=== PATIENT | male | born 1960 | race Caucasian/White ===

== ENCOUNTER → 2018-05-08 11:04 | Outpatient (REF) | payer OTHER, SELFPAY ==
[2018-05-08 11:10] LABS: Add Manual Diff / Slide Review NO; Basophils Percent Auto 0.5 % (0-2); Eosinophils Percent Auto 3.6 % (2-4); Hemoglobin 15.4 g/dL (13.5-17.5); Lymphocytes Percent Auto 31.9 % (25-40); Mean Corpuscular HGB Conc 33.6 % (30-36); Mean Corpuscular Hemoglobin 28.9 PG (26-34); Mean Corpuscular Volume 85.9 fL (80-100); Monocytes Percent Auto 6.3 % (3-14); Neutrophils Absolute Auto 5400 /uL (3000-5900); Neutrophils Percent Auto 57.7 % (50-75); Platelet Count 195 X10^3/uL (150-400); Red Blood Cell Count 5.35 X10^6/uL (4.5-5.9); Red Cell Distribution Width 14.6 % (11.6-14.8); White Blood Cell Count 9.4 X10^3/uL (4.5-11.0)
[2018-05-08 11:24] LABS: Alanine Aminotransferase 31 IU/L (21-72); Albumin 4.6 g/dL (3.5-5.0); Albumin Globulin Ratio 1.5 (1.0-2.8); Alkaline Phosphatase 58 U/L (38-126); Aspartate Aminotransferase 24 IU/L (17-59); BUN Creatinine Ratio 32.5 (6-22); Bilirubin Total 0.7 mg/dL (0.2-1.3); Blood Urea Nitrogen 26 mg/dL (9-20); Carbon Dioxide 30 mmol/L (22-32); Chloride 100 mmol/L (98-107); Cholesterol 249 mg/dL (140-199); Estimated Glomerular Filt Rate > 60.0 mL/min (>60); Glucose 102 mg/dL (70-100); HDL Cholesterol 43 mg/dL (40-60); HEMOLYSIS < 15 (0-50); LDL Cholesterol Calculated 130 mg/dL (<100); Potassium 3.8 mmol/L (3.4-5.1); Sodium 141 mmol/L (137-145); Total Protein 7.6 g/dL (6.3-8.2); Triglycerides 380 mg/dL (35-150)
[2018-05-08 11:54] LABS: Prostate Specific Antigen Scrn 1.13 ng/mL (0.1-4.0)
== END ==
LOC: LAB 11:04
PROVIDERS: Visit Provider Internal Medicine
DX: I10 Essential (primary) hypertension (principal); E78.5 Hyperlipidemia, unspecified; Z12.5 Encounter for screening for malignant neoplasm of prostate
CPT/HCPCS: 80053; 80061; 85025; G0103

== ENCOUNTER → 2018-05-14 12:37 | Outpatient (CLI) | payer OTHER, SELFPAY ==
[2018-05-14 14:02] LABS: Appearance Urine UA CLEAR; Bilirubin Urine UA NEGATIVE (NEGATIVE); Color Urine UA YELLOW; Glucose Urine UA NEGATIVE (Normal); Ketones Urine UA NEGATIVE (NEGATIVE); Leukocyte Esterase Urine UA NEGATIVE (NEGATIVE); Nitrite Urine UA Negative (Negative); Occult Blood Urine UA NEGATIVE (Negative); Protein Urine UA NEGATIVE (Negative); Urobilinogen Urine UA 0.2 E.U./dL (0.2); pH Urine UA 5.5 (4.5-8.0)
== END ==
PROVIDERS: PCP Internal Medicine; Visit Provider Surgery
DX: R39.15 Urgency of urination (principal)
CPT/HCPCS: 81003

== ENCOUNTER → 2018-05-18 12:04 | Outpatient (CLI) | payer OTHER, SELFPAY ==
--- NOTE | 2018-05-18 13:25 | P.PCN_ITS ---
Cardiac Stress Test Report Referral & Results Date Patient Seen: 05/18/18 Time Patient Seen: 13:23 Requesting provider: Chris Burger Indication: Chest pain Rest ECG: Unremarkable Procedure Note: Today following both written and verbal informed consent the patient was exercised according to a standard Mike protocol patient went for a total of 6 min 7 sec achieving a maximum heart rate of 153 maximum systolic blood pressure of 210. This is approximately 7.0 METS. Exercise was terminated at this point because of targets having been med. Patient was also given Cardiolite through a previously started Hep-Lock IV by the nuclear medicine specialist approximately 1 minute prior to the cessation of exercise. With exercise, patient had no clear ST-T segment changes Occasional PACs were identified and near the end of exercise patient went into an accelerated supraventricular rhythm with a heart rate in the 150s, probably an SVT although somewhat slow for that, this was asymptomatic. This resolved early in recovery, and heart rate dropped back to 120 or so. Functional aerobic impairment rated 25% on the sedentary scale Impression: No evidence of ischemia Dysrhythmia as above Perfusion imaging will be reported separately Please note: Actual ECG tracings can be found in the PACS system.
--- NOTE | 2018-05-19 18:32 | DI.NM.S_ITS ---
DATE OF SERVICE: 05/18/2018 PROCEDURE: Exercise perfusion study. INDICATIONS: History of chest pain with underlying hypertension, hyperlipidemia, and strong family history of coronary artery disease. RADIOPHARMACEUTICAL: 25.8 mCi technetium-99m Myoview IV was injected at stress and 24.9 mCi technetium-99m Myoview IV was injected at rest. CARDIAC STRESS: Patient underwent exercise perfusion study under the supervision of an attending staff. He walked on Mike protocol for 6 minutes and 07 seconds and achieved 95% of target heart rate. There was hypertensive blood pressure response. Baseline blood pressure 138/90. Peak blood pressure 210/100. Baseline rhythm was sinus. During stress, there was some nonspecific ST depression in inferolateral leads. At the peak heart rate of 153, patient had narrow QRS tachycardia with likely SVT. No significant ventricular arrhythmias seen. No significant chest pain reported. RAW DATA: There is increased subdiaphragmatic activity. Soft tissue shadow seen around the heart as well. Patient's weight is about 310 pounds. GATED STUDY: Resting stress LV ejection fraction 62%. Stress LV ejection fraction 73%. I don't see any significant wall motion abnormalities. No transient ischemic dilatation. TID ratio is 1.00, which is within normal limits. Resting LV end-diastolic volume is 162 mL. Lung/heart ratio is 0.37, which is within normal limits. MYOCARDIAL PERFUSION SCAN: Stress supine, resting supine, and stress prone images were compared to each other. Resting supine images revealed moderate- sized puqm-nc-mxvntpavip decreased perfusion of inferior wall and inferior apex. Stress supine images revealed moderate size, ihwo-zz-yvtfbvzhgy decreased perfusion of inferior wall, inferior apex, as well as wwla-lk-okgnxahbwx decreased perfusion of mid-anterior wall extending into the distal anterior septum. During prone images, most of the inferior wall defect got improved; however, patient remained to have mildly decreased perfusion of inferior apex; and moderately decreased perfusion of mid anterior wall extending into the distal anterior septum which appears to be reversible. CONCLUSION: I will call this study an abnormal myocardial perfusion study with icbb-bq-bhrjgyuc reversible ischemia of mid anterior wall extending into the distal anterior septum. Inferior wall defect likely due to diaphragmatic tissue attenuation artifact. There is a hypertensive blood pressure response. Patient also had narrow QRS tachycardia at peak exercise, likely SVT. findings were discussed with Dr. Burger. Michael Correa - INHALATION THERAPIST/fn/ab doc#: [id number]/job#: [id number] dd: 05/19/2018 12:52:00 dt: 05/19/2018 18:20:00 DICTATING MD/COPIES TO: Riana Waters MD; Chris Burger MD COPIES MNE: JW; JUDIT
== END ==
PROVIDERS: PCP Internal Medicine; Visit Provider Internal Medicine
DX: R07.9 Chest pain, unspecified (principal); I49.9 Cardiac arrhythmia, unspecified
CPT/HCPCS: 78452; 93016; 93017; 93018; A9502

== ENCOUNTER → 2018-07-07 15:00 | Outpatient (CLI) | payer OTHER, SELFPAY | PROVIDERS: PCP Internal Medicine | DX: Z23 Encounter for immunization (principal) | CPT/HCPCS: 90471; 90686 ==

== ENCOUNTER → 2018-09-14 16:37 | Outpatient (CLI) | payer OTHER, SELFPAY ==
--- NOTE | 2018-09-14 16:40 | DI.RAD.S_ITS ---
PROCEDURE: XR CHEST 2V INDICATIONS: fever, cough, dyspnea TECHNIQUE: 2 views of the chest were acquired. COMPARISON: [facility], , CHEST 2 VIEW, 01/14/2017, 3:13. FINDINGS: Surgical changes and devices: None. Lungs and pleura: No pleural effusions or pneumothorax. Patchy consolidation involving the right upper lobe Mediastinum: Mediastinal contours are normal. Heart size is normal. Bones and chest wall: No suspicious bony abnormalities. Soft tissues appear unremarkable. IMPRESSION: Right upper lobe pneumonia Dictated by: Mc Land M.D. on 09/15/2018 at 9:01 Approved by: Mc Land M.D. on 09/15/2018 at 9:33
== END ==
PROVIDERS: PCP Internal Medicine; Visit Provider Surgery
DX: J18.9 Pneumonia, unspecified organism (principal)
CPT/HCPCS: 71046

== ENCOUNTER → 2018-09-15 12:01 | Outpatient (CLI) | payer OTHER, SELFPAY | PROVIDERS: PCP Internal Medicine; Visit Provider Surgery | DX: Z13.9 Encounter for screening, unspecified (principal) ==

== ENCOUNTER → 2018-10-12 11:47 | Outpatient (CLI) | payer OTHER, SELFPAY ==
--- NOTE | 2018-10-12 | DI.RAD.S_ITS ---
PROCEDURE: XR CHEST 2V INDICATIONS: Pneumonia TECHNIQUE: 2 views of the chest were acquired. COMPARISON: [facility], , CHEST 2 VIEW, 01/14/2017, 3:13. [facility], , XR CHEST 2V, 09/14/2018, 16:44. FINDINGS: Surgical changes and devices: None. Lungs and pleura: The previously seen right upper lobe infiltrate has resolved. The lungs now appear clear. No pneumothorax or pleural effusions are seen. Mediastinum: Mediastinal contours are normal. Heart size is normal. Bones and chest wall: No suspicious bony abnormalities. Age-appropriate bony degenerative changes are seen. Soft tissues appear unremarkable. IMPRESSION: Resolution of the previously seen right upper lobe infiltrate. Dictated by: Timur Valverde M.D. on 10/12/2018 at 11:14 Approved by: Timur Valverde M.D. on 10/12/2018 at 11:15
== END ==
PROVIDERS: PCP Internal Medicine; Visit Provider Internal Medicine
DX: J18.9 Pneumonia, unspecified organism (principal)
CPT/HCPCS: 71046

== ENCOUNTER → 2019-04-11 12:50 | Outpatient (CLI) | payer OTHER, SELFPAY ==
--- NOTE | 2019-04-11 12:53 | DI.RAD.S_ITS ---
PROCEDURE: XR CHEST 2V INDICATIONS: Fever, chills, productive cough. eval for pna TECHNIQUE: 2 views of the chest were acquired. COMPARISON: [facility], CR, XR CHEST 2V, 10/12/2018, 11:48. FINDINGS: Surgical changes and devices: None. Lungs and pleura: Mild patchy bilateral perihilar opacity and peribronchial cuffing. No pleural effusions or pneumothorax. Mediastinum: Mediastinal contours are normal. Heart size is normal. Bones and chest wall: No suspicious bony abnormalities. Soft tissues appear unremarkable. IMPRESSION: Mild atypical pneumonia. Dictated by: Gela Carrasquillo M.D. on 04/11/2019 at 12:03 Approved by: Gela Carrasquillo M.D. on 04/11/2019 at 12:04
== END ==
PROVIDERS: PCP Internal Medicine; Visit Provider Surgery
DX: J18.9 Pneumonia, unspecified organism (principal); R05 Cough; R50.9 Fever, unspecified
CPT/HCPCS: 71046

== ENCOUNTER → 2019-07-22 12:48 | Outpatient (CLI) | payer OTHER, SELFPAY | PROVIDERS: PCP Internal Medicine | DX: Z23 Encounter for immunization (principal) | CPT/HCPCS: 90471; 90686 ==

== ENCOUNTER → 2020-02-29 15:49 | Outpatient (CLI) | payer OTHER, SELFPAY ==
[2020-02-29 16:22] LABS: Add Manual Diff / Slide Review NO; Basophils Absolute Auto 100 /uL (0-100); Basophils Percent Auto 0.7 % (0-2); Eosinophils Absolute Auto 300 /uL (0-450); Eosinophils Percent Auto 2.9 % (2-4); Hematocrit 40.7 % (41-53); Hemoglobin 13.5 g/dL (13.5-17.5); Lymphocytes Absolute Auto 3200 /uL (1100-4500); Lymphocytes Percent Auto 35.4 % (25-40); Mean Corpuscular HGB Conc 33.1 % (30-36); Mean Corpuscular Hemoglobin 28.8 PG (26-34); Monocytes Absolute Auto 600 /uL (0-900); Monocytes Percent Auto 6.1 % (3-14); Neutrophils Absolute Auto 5000 /uL (1500-7000); Neutrophils Percent Auto 54.9 % (50-75); Platelet Count 174 X10^3/uL (150-400); Red Blood Cell Count 4.67 X10^6/uL (4.5-5.9); Red Cell Distribution Width 14.7 % (11.6-14.8)
[2020-02-29 16:29] LABS: INR 1.3 (0.9-1.3); Prothrombin Time 14.4 SECONDS (10.1-12.7)
[2020-02-29 17:18] LABS: BUN Creatinine Ratio 25.2 (6-22); Blood Urea Nitrogen 27 mg/dL (9-20); Calcium 9.6 mg/dL (8.4-10.2); Carbon Dioxide 29 mmol/L (22-32); Chloride 105 mmol/L (98-107); Estimated Glomerular Filt Rate > 60.0 mL/min (>60); Glucose 109 mg/dL (80-110); HEMOLYSIS < 15 (0-50); Potassium 3.8 mmol/L (3.4-5.1); Sodium 140 mmol/L (137-145)
== END ==
PROVIDERS: PCP Internal Medicine; Referring Provider Surgery; Visit Provider Surgery
DX: I48.92 Unspecified atrial flutter (principal)
CPT/HCPCS: 36415; 80048; 85025; 85610

== ENCOUNTER → 2020-03-03 14:50 | Outpatient (CLI) | payer OTHER, SELFPAY ==
[2020-03-04 04:18] LABS: COVID19 Sendout Not Detected (Not Detect)
== END ==
PROVIDERS: PCP Internal Medicine; Visit Provider Family Medicine
DX: Z01.812 Encounter for preprocedural laboratory examination (principal)
CPT/HCPCS: 87635

== ENCOUNTER → 2020-03-08 11:03 | Outpatient (CLI) | payer OTHER, SELFPAY ==
[2020-03-08 12:06] LABS: COVID19 -Nasal RAPID Negative (Negative)
== END ==
PROVIDERS: PCP Internal Medicine; Visit Provider Physician Assistant
DX: J02.9 Acute pharyngitis, unspecified (principal)
CPT/HCPCS: 87635

== ENCOUNTER → 2020-06-14 08:24 | Outpatient (CLI) | payer OTHER, SELFPAY ==
[2020-06-14 09:52] LABS: Add Manual Diff / Slide Review NO; Basophils Absolute Auto 100 /uL (0-100); Eosinophils Absolute Auto 200 /uL (0-450); Eosinophils Percent Auto 3.5 % (2-4); Hemoglobin 14.1 g/dL (13.5-17.5); Lymphocytes Absolute Auto 2400 /uL (1100-4500); Lymphocytes Percent Auto 36.4 % (25-40); Mean Corpuscular HGB Conc 34.4 % (30-36); Mean Corpuscular Hemoglobin 29.3 PG (26-34); Mean Corpuscular Volume 85.3 fL (80-100); Monocytes Absolute Auto 400 /uL (0-900); Monocytes Percent Auto 6.2 % (3-14); Neutrophils Absolute Auto 3500 /uL (1500-7000); Neutrophils Percent Auto 52.9 % (50-75); Platelet Count 174 X10^3/uL (150-400); Red Cell Distribution Width 14.3 % (11.6-14.8); White Blood Cell Count 6.7 X10^3/uL (4.5-11.0)
[2020-06-14 10:20] LABS: Alanine Aminotransferase 22 IU/L (<50); Albumin 4.3 g/dL (3.5-5.0); Albumin Globulin Ratio 1.6 (1.0-2.8); Alkaline Phosphatase 51 U/L (38-126); Aspartate Aminotransferase 24 IU/L (17-59); BUN Creatinine Ratio 32.6 (6-22); Bilirubin Total 0.6 mg/dL (0.2-1.3); Blood Urea Nitrogen 28 mg/dL (9-20); Calcium 9.3 mg/dL (8.4-10.2); Carbon Dioxide 31 mmol/L (22-32); Chloride 101 mmol/L (98-107); Cholesterol 202 mg/dL (140-199); Estimated Glomerular Filt Rate > 60.0 mL/min (>60); Globulin 2.7 g/dL (1.7-4.1); Glucose 106 mg/dL (80-110); HDL Cholesterol 37 mg/dL (40-60); HEMOLYSIS < 15 (0-50); LDL Cholesterol Calculated 113 mg/dL (<100); Potassium 4.2 mmol/L (3.4-5.1); Sodium 139 mmol/L (137-145); Triglycerides 262 mg/dL (35-150)
[2020-06-14 10:40] LABS: TSH w/ Reflex to FT4 2.43 uIU/mL (0.47-4.68)
[2020-06-14 10:42] LABS: Prostate Specific Antigen Scrn 1.17 ng/mL (0.1-4.0)
[2020-06-14 11:01] LABS: Vitamin B12 362 pg/mL (239-931)
== END ==
PROVIDERS: PCP Internal Medicine; Referring Provider Internal Medicine; Visit Provider Internal Medicine
DX: I10 Essential (primary) hypertension (principal); E78.5 Hyperlipidemia, unspecified; I48.92 Unspecified atrial flutter
CPT/HCPCS: 36415; 80053; 80061; 82607; 84443; 85025; G0103

== ENCOUNTER → 2020-08-01 07:30 | Outpatient (CLI) | payer OTHER, SELFPAY | PROVIDERS: PCP Internal Medicine; Referring Provider Internal Medicine; Visit Provider Internal Medicine | DX: Z23 Encounter for immunization (principal) | CPT/HCPCS: 90471; 90686 ==

== ENCOUNTER → 2020-10-25 15:50 | Outpatient (CLI) | payer OTHER, SELFPAY ==
[2020-10-25] MEDS: COVID-19 VACC(MODERNA-1)/PF 100 MCG/0.5 ML VIAL IM (15:57)
== END ==
PROVIDERS: PCP Internal Medicine; Visit Provider Specialist
DX: Z23 Encounter for immunization (principal)
CPT/HCPCS: 0011A; 91301

== ENCOUNTER → 2020-11-21 16:00 | Outpatient (CLI) | payer OTHER, SELFPAY ==
[2020-11-21] MEDS: COVID-19 VACC #2, MRNA(MOD) 100 MCG/0.5 ML VIAL IM (16:06)
== END ==
PROVIDERS: PCP Internal Medicine; Visit Provider Internal Medicine
DX: Z23 Encounter for immunization (principal)
CPT/HCPCS: 0012A; 91301

== ENCOUNTER → 2021-06-13 09:40 | Outpatient (CLI) | payer OTHER, SELFPAY ==
[2021-06-13 10:24] LABS: COVID19 -Nasal RAPID Negative (Negative)
== END ==
PROVIDERS: PCP Internal Medicine; Visit Provider Surgery
DX: Z20.822 Contact with and (suspected) exposure to COVID-19 (principal)
CPT/HCPCS: 87635; C9803

== ENCOUNTER → 2021-07-20 15:45 | Outpatient (CLI) | payer OTHER, SELFPAY ==
[2021-07-20 17:13] LABS: COVID19 -Nasal RAPID Negative (Negative)
== END ==
PROVIDERS: PCP Internal Medicine; Visit Provider Surgery
DX: Z01.812 Encounter for preprocedural laboratory examination (principal); Z20.822 Contact with and (suspected) exposure to COVID-19
CPT/HCPCS: 87635; C9803

== ENCOUNTER 2021-07-23 06:45 | Day surgery (SDC) | payer OTHER, SELFPAY ==
--- NOTE | 2021-07-23 | PATH_ITS ---
[facility] Accession Number: [id number] . 01 Material submitted: . PART A: colon - SIGMOID COLON POLYP PART B: colon - CECUM POLYP . 02 Diagnosis: A. Sigmoid Colon, Polyp, Biopsy: Tubular adenoma. . B. Cecum, Polyp, Biopsy: Tubular adenoma. MRV 07/25/2021 1226 Local . 02 Electronically signed: . Abeba Mc MD, Pathologist NPI- [id number] . 01 Gross description: . Part A: SIGMOID COLON POLYP: Received in formalin are 2 fragment(s) of agrawal, soft tissue measuring 0.5 x 0.3 x 0.2 cm to 0.3 x 0.2 x 0.2 cm submitted entirely in 1 cassette(s) Part B: CECUM POLYP: Received in formalin are 3 fragment(s) of agrawal, soft tissue measuring 0.3 x 0.3 x 0.2 cm to 0.2 x 0.1 x 0.1 cm submitted entirely in 1 cassette(s) /TATY 07/24/2021 0418 Local . 02 Pathologist provided ICD-10: D12.0, D12.5 . 02 CPT . 659609, 093007 Performed at: 01 [facility] [address], [place], [place] [id number] MD Royce Lazaro MD Phone: [phone] Performed at: 02 [facility] [address] [place], [place] [id number] MD Abeba Mc MD Phone: [phone]
[2021-07-23 06:59] VITALS: BP 149/74; PULSE 66; RESP 14; TEMP 36.9; O2SAT 95
[2021-07-23] MEDS: LACTATED RINGERS 1,000 ML 200 ML IV (07:16)
--- NOTE | 2021-07-23 07:37 | PM.HP.1 ---
History of Present Illness History of Present Illness Date Patient Seen: 07/23/21 Time Patient Seen: 07:37 Chief complaint: SDC Narrative: The patient presents for colorectal sreening. Previous colonoscopy 11 years ago and normal. No personal or family history of colon cancer. On further history denies any recent gastrointestinal symptoms. No nausea, vomiting, abdominal pain, loss of appetite, unexplained weight loss, change in bowel habits, diarrhea, constipation, melena, hematochezia, or bright red blood per rectum. Patient History Medical History Accidental needlestick injury with exposure to body fluid Atrial flutter Atypical chest pain Essential hypertension History of torn meniscus of left knee History of torn meniscus of right knee Hyperlipidemia Morbid obesity with body mass index (BMI) of 40.0 to 49.9 Obstructive sleep apnea Pneumonia Sick sinus syndrome due to SA node dysfunction Torn ACL (anterior cruciate ligament) Surgical History History of cardiac radiofrequency ablation History of right inguinal hernia repair S/P left knee arthroscopy Family & Social History Family History Sister Dementia Mother Hypertension Hyperlipidemia Brother Cancer Father No problems noted. Social History: household members spouse Tobacco & Substance use: Smoking Status Never smoker alcohol intake current alcohol intake frequency holiday/special occasion Substance Use Type does not use Meds Home Medications and Allergies Home Medications Medication Instructions Recorded Confirmed Type chlorthalidone 25 mg tablet 25 mg PO DAILY #0 01/14/17 07/23/21 History losartan 100 mg tablet 100 mg PO QDAY #0 01/14/17 07/23/21 History [TYLENOL ] 1,000 mg PO Q6-8H PRN #0 07/07/18 02/08/19 History fenofibrate nanocrystallized 145 145 mg PO DAILY 07/07/18 07/23/21 History mg tablet Respironics Dreamstation CPAP #1 ea 02/17/20 History doxazosin 8 mg tablet 8 mg PO DAILY 07/21/21 07/23/21 History Asp 325 mg PO DAILY 07/23/21 07/23/21 History Allergies Allergy/AdvReac Type Severity Reaction Status Date / Time chlorhexidine [CHLORHEXIDINE] Allergy Unknown Verified 07/23/21 06:51 lisinopril [LISINOPRIL] Allergy Unknown Cough Verified 07/23/21 07:19 amoxicillin [From AUGMENTIN] AdvReac Severe diarrhea Verified 07/23/21 07:19 Ufguhkr-Dcq-Zga Reductase AdvReac Severe Severe Verified 07/23/21 07:19 Inhibitor muscle pain [[id number]-[id number]-EBR REDUCTASE INHIBITOR] ezetimibe [From Zetia] AdvReac Intermediate severe Verified 07/23/21 07:19 muscle pain adhesive tape AdvReac Unknown Verified 07/23/21 07:19 azithromycin [AZITHROMYCIN] AdvReac Unknown vomiting Verified 07/23/21 07:19 clavulanic acid AdvReac Unknown diarrhea Verified 07/23/21 07:19 [From AUGMENTIN] Exam Vital Signs (past 8 hours): - 07/23/21 06:59 Temperature 98.4 F Pulse Rate 66 Respiratory Rate 14 Blood Pressure 149/74 H Pulse Oximetry 95 Oxygen Delivery Method Room Air Narrative Exam Narrative: Constitutional-he is oriented to person, place and time. No apparent distress Chest-non labored respirations Abdominal-soft, non-tender, non-distended Neurological-nonfocal, normal strength throughout, normal gait. Skin-warm and dry Assessment & Plan Assessment and plan (1) Screening for colon cancer: Status: Acute Assessment & Plan narrative: The patient requires colorectal screening and colonoscopy is recommended. Technical details were discussed. Risks, benefits, alternatives explained. Risks including but not limited to myocardial infarction, aspiration, bleeding, pain, missed lesion, incomplete examination, need for further radiographic studies, colonic perforation, and need for major abdominal surgery were discussed. All questions were answered to their satisfaction, and they are in agreement with this plan. Time Spent With Patient Critical Care time: I spent a total of [] minutes of critical care time on this patient's care today; this time is exclusive of procedural time.
[2021-07-23] MEDS: fentaNYL 250 MCG/5 ML INJ IV (08:01)
[2021-07-23 08:24] VITALS: BP 155/69; PULSE 65; RESP 16; TEMP 36.8; O2SAT 96
--- NOTE | 2021-07-23 08:26 | PM.OP.COLON ---
Operative Date/Time/Diagnoses Date of procedure: 07/23/21 Time of procedure: 08:26 Pre-op diagnosis: Screening colonoscopy Post-op diagnosis: same Procedure & Clinicians Study performed: Colonoscopy and polypectomy Same procedure as scheduled: Yes Indications: Screening colonoscopy Surgeon: Bello Avitia Procedure Notes Procedure in detail: Medications: Conscious sedation using 50mcg IV of fentanyl The history and physical was performed/updated and the patient is ASA class is 2. The procedure was discussed in detail with the patient. Potential risks complications including infection, bleeding, missed diagnosis, perforation, need for surgery, and were explained. Their questions were answered and informed consent was obtained. Patient was brought to the procedure room and placed standard monitoring equipment. The patient's vital signs were monitored continuously throughout the entire procedure. Prior to starting time-out was performed. The patient was placed in the left lateral recumbent position. Examination began with a thorough inspection of the perianal area there was no evidence of fissures, fistulae, or cutaneous malignancy. Digital rectal exam demonstrated a moderate size prostate without masses. The colonoscopy scope was then placed into the anal canal and was advanced to the cecum, which was identified by the ileocecal valve, the appendiceal orifice and the confluence of the taenia. The scope was then slowly withdrawn examining colon thoroughly in all directions, irrigating it of any residual stool. FINDINGS 1. 5 mm polyp in the sigmoid colon removed with biopsy forceps 2. 5 mm polyp in the cecum removed with biopsy forceps The patient tolerated the procedure well. They will be discharged once criteria are met. The prep was of good/excellent quality. The withdrawl time was 8 minutes. The sedation time was 30 minutes. Specimen(s): other (cecum and sigmoid colonic polyps) Complications: none Impression: colonic polyps Post-procedure Recommendations: Colonoscopy in 5 years Disposition: same day surgery
[2021-07-23 08:29] VITALS: BP 163/91; PULSE 66; RESP 16; O2SAT 96
[2021-07-23 08:32] VITALS: BP 155/86; PULSE 63; RESP 16; O2SAT 96
--- NOTE | 2021-07-23 08:41 | SUR.PHASEII ---
dc instructions given. patient wide awake. states ready for dc. vss.
== END 2021-07-23 08:45 | disposition home or self-care (01) ==
PROVIDERS: PCP Internal Medicine; Referring Provider Surgery; Visit Provider Surgery
PROC: 0DJD8ZZ Inspection of Lower Intestinal Tract, Via Natural or Artificial Opening Endoscopic (ICD-10-PCS; CPT 45378; principal; 2021-07-23 07:45)
DX: Z12.11 Encounter for screening for malignant neoplasm of colon (principal); I10 Essential (primary) hypertension; E78.5 Hyperlipidemia, unspecified; E66.01 Morbid (severe) obesity due to excess calories; G47.33 Obstructive sleep apnea (adult) (pediatric); D12.0 Benign neoplasm of cecum; D12.5 Benign neoplasm of sigmoid colon
CPT/HCPCS: 45380; 99152; 99153; J3010

== ENCOUNTER → 2021-08-24 10:35 | Outpatient (CLI) | payer OTHER, SELFPAY ==
[2021-08-24] MEDS: COVID-19 VACC #3, MRNA(MOD) 50 MCG/0.25 ML VIAL IM (10:38)
== END ==
PROVIDERS: PCP Internal Medicine; Visit Provider Internal Medicine
DX: Z23 Encounter for immunization (principal)
CPT/HCPCS: 0013A; 91301

== ENCOUNTER → 2021-08-24 11:02 | Outpatient (CLI) | payer OTHER, SELFPAY ==
[2021-08-24 12:19] LABS: Add Manual Diff / Slide Review NO; Basophils Absolute Auto 100 /uL (0-100); Basophils Percent Auto 0.9 % (0-2); Eosinophils Absolute Auto 300 /uL (0-450); Eosinophils Percent Auto 4.1 % (2-4); Hematocrit 39.9 % (41-53); Hemoglobin 13.5 g/dL (13.5-17.5); Lymphocytes Absolute Auto 2400 /uL (1100-4500); Lymphocytes Percent Auto 36.5 % (25-40); Mean Corpuscular HGB Conc 33.9 % (30-36); Mean Corpuscular Hemoglobin 28.7 PG (26-34); Mean Corpuscular Volume 84.7 fL (80-100); Monocytes Absolute Auto 400 /uL (0-900); Monocytes Percent Auto 5.6 % (3-14); Neutrophils Absolute Auto 3500 /uL (1500-7000); Neutrophils Percent Auto 52.9 % (50-75); Platelet Count 185 X10^3/uL (150-400); Red Blood Cell Count 4.71 X10^6/uL (4.5-5.9); Red Cell Distribution Width 13.9 % (11.6-14.8); White Blood Cell Count 6.6 X10^3/uL (4.5-11.0)
[2021-08-24 12:48] LABS: Alanine Aminotransferase 24 IU/L (<50); Albumin Globulin Ratio 1.4 (1.0-2.8); Alkaline Phosphatase 50 U/L (38-126); Aspartate Aminotransferase 24 IU/L (17-59); Bilirubin Total 0.5 mg/dL (0.2-1.3); Blood Urea Nitrogen 24 mg/dL (9-20); Calcium 9.5 mg/dL (8.4-10.2); Carbon Dioxide 29 mmol/L (22-32); Chloride 103 mmol/L (98-107); Cholesterol 192 mg/dL (140-199); Estimated Glomerular Filt Rate > 60.0 mL/min (>60); Globulin 2.9 g/dL (1.7-4.1); Glucose 102 mg/dL (80-110); HDL Cholesterol 37 mg/dL (40-60); HEMOLYSIS < 15 (0-50); LDL Cholesterol Calculated 101 mg/dL (<100); Potassium 3.9 mmol/L (3.4-5.1); Sodium 141 mmol/L (137-145); Total Protein 6.9 g/dL (6.3-8.2); Triglycerides 270 mg/dL (35-150)
[2021-08-24 13:15] LABS: TSH w/ Reflex to FT4 1.82 uIU/mL (0.47-4.68)
== END ==
PROVIDERS: PCP Internal Medicine; Referring Provider Internal Medicine; Visit Provider Internal Medicine
DX: G25.0 Essential tremor (principal); G47.33 Obstructive sleep apnea (adult) (pediatric); I10 Essential (primary) hypertension; Z12.5 Encounter for screening for malignant neoplasm of prostate; E78.2 Mixed hyperlipidemia
CPT/HCPCS: 36415; 80053; 80061; 84153; 84443; 85025

== ENCOUNTER → 2021-08-30 09:28 | Outpatient (CLI) | payer OTHER, SELFPAY ==
[2021-08-30 11:10] LABS: COVID19 -Nasal RAPID Negative (Negative)
== END ==
PROVIDERS: PCP Internal Medicine; Visit Provider Surgery
DX: Z01.812 Encounter for preprocedural laboratory examination (principal); Z20.822 Contact with and (suspected) exposure to COVID-19
CPT/HCPCS: 87635; C9803

== ENCOUNTER → 2021-11-20 13:17 | Outpatient (CLI) | payer OTHER, SELFPAY ==
[2021-11-20 15:54] LABS: BUN Creatinine Ratio 27.4 (6-22); Blood Urea Nitrogen 29 mg/dL (9-20); Carbon Dioxide 32 mmol/L (22-32); Chloride 100 mmol/L (98-107); Estimated Glomerular Filt Rate > 60.0 mL/min (>60); Glucose 105 mg/dL (80-110); HEMOLYSIS < 15 (0-50); Potassium 3.3 mmol/L (3.4-5.1); Sodium 140 mmol/L (137-145)
== END ==
PROVIDERS: PCP Internal Medicine; Referring Provider Internal Medicine Cardiovascular Disease; Visit Provider Internal Medicine Cardiovascular Disease
DX: I48.3 Typical atrial flutter (principal); E78.5 Hyperlipidemia, unspecified
CPT/HCPCS: 36415; 80048

== ENCOUNTER → 2022-05-10 15:57 | Outpatient (CLI) | payer OTHER, SELFPAY ==
--- NOTE | 2022-05-10 15:59 | DI.RAD.S_ITS ---
PROCEDURE: XR LUMBAR SPINE MIN 4V INDICATIONS: bilateral sciatic pain TECHNIQUE: 5 views of the lumbar spine were acquired, including bilateral oblique views. COMPARISON: None. FINDINGS: Bones: 5 nonrib-bearing vertebrae are present. There is normal bony alignment. No acute vertebral body compression fractures. No suspicious bony lesions. Moderate multilevel lumbar spondylosis with degenerative endplate changes, endplate osteophyte formation, and moderate mid and lower lumbar facet arthropathy. Findings appear most pronounced at the thoracolumbar junction. Soft tissues: Overlying bowel gas pattern is normal. No suspicious soft tissue calcifications. Atherosclerotic calcifications noted. Oblique images: No pars defects. IMPRESSION: Lumbar spine without acute osseous abnormalities. Moderate multilevel lumbar spondylosis most pronounced at the thoracolumbar junction. Moderate mid and lower lumbar facet arthropathy. Dictated by: Sidney Escobedo M.D. on 05/10/2022 at 16:53 Approved by: Sidney Escobedo M.D. on 05/10/2022 at 16:55
== END ==
PROVIDERS: PCP Internal Medicine; Referring Provider Surgery; Visit Provider Surgery
DX: M47.815 Spondylosis without myelopathy or radiculopathy, thoracolumbar region (principal); M47.816 Spondylosis without myelopathy or radiculopathy, lumbar region; M54.32 Sciatica, left side; M54.31 Sciatica, right side
CPT/HCPCS: 72110

== ENCOUNTER → 2022-08-28 16:30 | Outpatient (CLI) | payer OTHER, SELFPAY ==
--- NOTE | 2022-08-28 16:33 | DI.RAD.S_ITS ---
PROCEDURE: XR WRIST LT MIN 3V INDICATIONS: wrist pain sp fall TECHNIQUE: 4 views of the wrist were acquired. COMPARISON: None. FINDINGS: Bones: No fractures or dislocations. No suspicious bony lesions. Scaphoid view: Intact scaphoid. Soft tissues: No suspicious soft tissue calcifications. IMPRESSION: No acute fracture. If clinical suspicion and/orsymptoms persist, further assessment with repeat plainfilms, or advanced imaging (e.g., CT, MRI, or bone scan) may be helpful for further assessment. Dictated by: Willie Andre [facility] Interpreted: Liuz Jo MD on 08/28/2022 at 16:49 Transcribed by: BHAVYA on 08/28/2022 at 16:49 Approved by: Luiz Jo M.D. on 08/28/2022 at 22:21
== END ==
PROVIDERS: PCP Family Medicine; Referring Provider Surgery; Visit Provider Surgery
DX: M25.532 Pain in left wrist (principal)
CPT/HCPCS: 73110

== ENCOUNTER → 2022-09-30 13:48 | Outpatient (CLI) | payer OTHER, SELFPAY ==
--- NOTE | 2022-09-30 | DI.MRI.S_ITS ---
PROCEDURE: MR HEAD/BRAIN WO/W CON INDICATIONS: Foot drop, right foot TECHNIQUE: Noncontrast axial T1 spin echo, axial T2 fast spin echo, sagittal and axial FLAIR, coronal T2 fast spin echo, axial gradient echo, axial diffusion and ADC through the brain. After the administration of contrast, axial and coronal and sagittal 3D VIBE or T1 spin echo with fat saturation through the brain. COMPARISON: None. FINDINGS: Image quality: Incidental 0.5 cm left maxillary sinus retention cyst CSF Spaces: Basal cisterns are patent. No extra-axial fluid collections. Ventricles are normal in size and shape. Brain: No midline shift. No intracranial bleeds or masses. No abnormal intracranial enhancement. The brainstem appears normal. Diffusion-weighted images demonstrate no acute ischemic insults. No chronic ischemic insults. Normal intravascular flow voids are present. Skull and face: Calvarial marrow is normal in signal. Orbits appear normal. Sinuses: Sinuses and mastoids appear clear. IMPRESSION: Unremarkable MRI of the brain Approved by: Miller Hopkins M.D. on 09/30/2022 at 16:41
== END ==
PROVIDERS: PCP Family Medicine; Referring Provider Psychiatry & Neurology Neurology; Visit Provider Psychiatry & Neurology Neurology
DX: M21.371 Foot drop, right foot (principal); R20.0 Anesthesia of skin; R25.1 Tremor, unspecified; J34.1 Cyst and mucocele of nose and nasal sinus
CPT/HCPCS: 70553; A9579

== ENCOUNTER 2024-10-21 10:29 | Emergency (ER) | payer MEDICARE, OTHER, SELFPAY ==
[2024-10-21 10:38] VITALS: BP 165/78; PULSE 64; RESP 18; TEMP 36.5; O2SAT 97; BMI 36.6
--- NOTE | 2024-10-21 10:46 | ED_ITS ---
HPI - Back Pain/Injury General Chief Complaint: Back Pain/Injury Stated Complaint: Lower back pain , Numbness in left leg Time Seen by Provider: 10/21/24 10:35 Source: patient Mode of arrival: Ambulatory History of Present Illness HPI Narrative: Patient is a 64-year-old male. Has had lower back pain in the past but has not had anything recently. He states that approximately 3-4 days ago there was 1 particular incident where he bent over to pick something up. He stated that he would immediate back discomfort and radiation of pain and numbness down into his left leg. He had no change in his baseline neurologic deficits in his right lower extremity. Has been resting at home. Taking anti-inflammatories. He would some Decadron at home and took 2 days' worth of this medication but stopped taking it because if he takes it for prolonged period of time he gets thrush. He denies any bowel changes. No urinary changes. No urinary retention. Describes the pain in his left buttocks and down the left side of his leg and down to the outside of his left foot. He also reports that he feels like it is difficult for him to lift his left foot. Has pain mostly occurs when he was standing or walking. When he was lying or sitting his pain is relatively well controlled. Related Data Home Medications Medication Instructions Recorded Confirmed losartan 100 mg tablet 100 mg PO QDAY ##0 01/14/17 11/13/23 [TYLENOL ] 1,000 mg PO Q6-8H PRN Arthritis 07/07/18 06/26/22 pain ##0 fenofibrate nanocrystallized 145 145 mg PO DAILY 07/07/18 11/13/23 mg tablet doxazosin 8 mg tablet 8 mg PO DAILY 07/21/21 11/13/23 chlorthalidone 25 mg tablet 50 mg PO DAILY #0 tabs 12/19/21 11/13/23 Respironics Dreamstation 2 CPAP #1 ea 06/26/22 ibuprofen 800 mg tablet 800 mg PO DAILY 06/26/22 11/13/23 gabapentin 600 mg tablet 600 mg PO BID 11/13/23 11/13/23 primidone 125 mg tablet 125 mg PO BEDTIME 11/13/23 11/13/23 terbinafine HCl 250 mg tablet 250 mg PO DAILY 11/13/23 11/13/23 Allergies Allergy/AdvReac Type Severity Reaction Status Date / Time chlorhexidine [CHLORHEXIDINE] Allergy Unknown Verified 10/21/24 10:38 lisinopril [LISINOPRIL] Allergy Unknown Cough Verified 10/21/24 10:38 amoxicillin [From AUGMENTIN] AdvReac Severe diarrhea Verified 10/21/24 10:38 Tyuubpj-EMP-EcO Reductase AdvReac Severe Severe Verified 10/21/24 10:38 Inhibitor muscle pain [CEYUMLM-[id number] REDUCTASE INHIBITOR] ezetimibe [From Zetia] AdvReac Intermediate severe Verified 10/21/24 10:38 muscle pain adhesive tape AdvReac Unknown Verified 10/21/24 10:38 azithromycin [AZITHROMYCIN] AdvReac Unknown vomiting Verified 10/21/24 10:38 clavulanic acid AdvReac Unknown diarrhea Verified 10/21/24 10:38 [From AUGMENTIN] Review of Systems Review of Systems ROS Unobtainable: All systems reviewed & are unremarkable except as noted in HPI and below Patient History Medical History History of torn meniscus of right knee History of torn meniscus of left knee Sick sinus syndrome due to SA node dysfunction Atrial flutter Hyperlipidemia Obstructive sleep apnea Morbid obesity with body mass index (BMI) of 40.0 to 49.9 Essential hypertension Torn ACL (anterior cruciate ligament) Atypical chest pain Accidental needlestick injury with exposure to body fluid Pneumonia Surgical History History of cardiac radiofrequency ablation History of right inguinal hernia repair S/P left knee arthroscopy Family History (Updated 12/19/21 @ 16:22 by Michael Correa MD) Sister Dementia Mother Hypertension Hyperlipidemia CAD (coronary artery disease) Brother CAD (coronary artery disease) Cancer Father Atrial fibrillation Staghorn kidney stones Social History household members: spouse Smoking Status: Never smoker alcohol intake: current Smoking Status: Never smoker alcohol intake frequency: holidays/special occasions only Exam Initial Vital Signs Initial Vital Signs: Vital Signs Temperature 97.7 F 10/21/24 10:38 Pulse Rate 64 10/21/24 10:38 Respiratory Rate 18 10/21/24 10:38 Blood Pressure 165/78 H 10/21/24 10:38 Pulse Oximetry 97 10/21/24 10:38 Oxygen Delivery Method Room Air 10/21/24 10:38 Const General: cooperative, comfortable and No ill appearing HENMT Head: normal to inspection Resp Effort & Inspection: normal respiratory effort Cardio Rate: regular rate GI Inspection: normal to inspection and non-distended Palpation: No tender Back/Spine/Pelvis Cervical Spine: No cervical spinal tenderness Thoracic/Lumbar Spine: No paraspinal tenderness, No thoracic spinal tenderness and No lumbar spinal tenderness Neuro Other: Decreased sensation to light touch in the lower lumbar nerve distribution of the left lower extremity. He was the same on the right but this is baseline for him. Achilles reflex 1+ equal bilateral. Could not elicit a patellar reflex but this is equal bilateral. Patient can do a straight leg raise on the left without back discomfort. 4/5 strength with plantar flexion and dorsiflexion equal bilateral Extrem Other: No gross deformity Course Orders Ordered: ED Orders 10/21/24 10:46 MR lumbar spine wo con Stat Vital Signs Vital signs: Vital Signs - 8 hr 10/21/24 10:38 10/21/24 13:04 10/21/24 13:05 Temperature 97.7 F Pulse Rate 64 50 L 50 L Respiratory Rate 18 Blood Pressure 165/78 H 153/74 H Pulse Oximetry 97 96 96 Oxygen Delivery Method Room Air Room Air 10/21/24 13:05 10/21/24 14:33 10/21/24 14:34 Temperature Pulse Rate 55 L 55 L Respiratory Rate Blood Pressure 153/74 H Pulse Oximetry 97 96 Oxygen Delivery Method Room Air 10/21/24 14:34 Temperature Pulse Rate Respiratory Rate Blood Pressure 173/81 H Pulse Oximetry Oxygen Delivery Method MDM - Back Pain/Injury Imaging Data Lumbar MRI: Radiologist's Impression: PROCEDURE: MR LUMBAR SPINE WO CON INDICATIONS: L sided radiculopathy TECHNIQUE: Noncontrast sagittal T1 spin echo and T2 fast echo, sagittal STIR, and T2 fast spin echo through the lumbar spine. In cases with scoliosis, additional coronal T2 fast spin echo may be performed. COMPARISON: CR, XR LUMBAR SPINE MIN 4V, 05/10/2022, 16:48. FINDINGS: Image quality: Excellent. Alignment and Curvature: There is normal bony alignment. Bone Marrow: Marrow is of normal overall signal. No acute vertebral body compression fractures. Spinal Cord: Conus medullaris terminates at the L1 level. Visualized cord demonstrates normal signal and size. Paraspinous Soft Tissues: No paravertebral masses. T12-L1: Loss of disc signal. Mild, diffuse disc bulge. Mild narrowing of the central canal. No neural foraminal narrowing. No neural compression. L1-L2: Loss of disc signal. Mild, diffuse disc bulge. Mild narrowing of the central canal. Mild bilateral neural foraminal narrowing. No neural compression. L2-L3: Loss of disc signal. Mild, diffuse disc bulge. Cxol-hs-bflhjhpg narrowing of the central canal. Mild to moderate bilateral neural foraminal narrowing. No neural compression. Disc annulus fissures. L3-L4: Loss of disc signal. Moderate, diffuse disc bulge. Mild bilateral facet hypertrophy. Moderate ligamentum flavum hypertrophy. Moderate narrowing of the central canal. Mild to moderate bilateral neural foraminal narrowing. No neural compression. L4-L5: Loss of disc signal. Mild, diffuse disc bulge. Large central/right central disc extrusion. Extruded disc material extends inferiorly along posterior margin of the L5 vertebral body. Mild bilateral facet hypertrophy. Moderate ligamentum flavum hypertrophy. Severe narrowing of the central canal with compression of the nerve roots of the cauda equina. Moderate bilateral neural foraminal narrowing. L5-S1: Loss of disc signal. Mild, diffuse disc bulge. Mild bilateral facet hypertrophy. No central stenosis. No neural foraminal narrowing. No neural compression. IMPRESSION: Multilevel degenerative disc disease and facet arthropathy. Large central/right central L4-L5 disc extrusion. Severe L4-L5 central canal stenosis with compression of the nerve roots of the cauda equina. No severe neural foraminal stenosis. MDM Narrative Medical decision making narrative: 3 days of symptoms with bilateral lower extremity neurologic changes however the right lower extremity changes at baseline. He was new changes on the left. Does not appear to have bowel or bladder dysfunction. The neurologic changes or in the lower lumbar upper sacral nerve distribution on the left. Patient was afebrile. MRI shows L4-L5 bulging disc that has a central protrusion that does push along the cauda equina. Does not specifically mentioned cauda equina syndrome however given his presentation that would be my suspicion. Attempted to contact multiple facilities to include [facility], [facility], [facility], [facility] without any bed availability. I did discuss the case with [facility]. They accepted the patient for transfer. Discussed the patient with Dr. Rocha emergency provider at [facility] who accepts the patient however recommended a discussion with spine service prior to transfer. Discussing this with the patient he understands the importance of transfer for spine evaluation. He states that he does not want to go to [facility]. He prefers to go to [facility] [place]. Informed him that unfortunately I would not be able to set up a transfer given bed availability. Patient expressed understanding of this. He states he would like to be discharged and will have his spouse drive him to the [place] emergency department. We discussed the risks and benefits of this. He understands the risks and benefits and would like to be discharged to present to the emergency department independently. Discharge Plan Departure Patient Disposition: Released, Other Clinical Impression: Cauda equina syndrome Instructions: DI for Low Back Pain Activity Restrictions/Additional Instructions: I do recommend that you proceed directly to the emergency department of your choice for further evaluation of presumed cauda equina. Prescriptions: No Action losartan 100 MG tablet 100 mg PO QDAY Qty: 0 [TYLENOL ] 1,000 mg PO Q6-8H PRN (Reason: Arthritis pain) Qty: 0 fenofibrate nanocrystallized 145 mg tablet 145 mg PO DAILY chlorthalidone 25 mg tablet 50 mg PO DAILY Qty: 0 (DME) Respironics Dreamstation 2 CPAP See Rx Instructions Qty: 1 Dose Instruction: As directed Rx Instructions: Pressure: 12-20 cmH2O DME: [facility] doxazosin 8 mg Tablet 8 mg PO DAILY gabapentin 600 mg tablet 600 mg PO BID primidone 125 mg tablet 125 mg PO BEDTIME terbinafine HCl 250 mg tablet 250 mg PO DAILY ibuprofen 800 mg tablet 800 mg PO DAILY Referrals: Piyush Smith MD [Primary Care Provider] -
--- NOTE | 2024-10-21 13:01 | PC.NURSE ---
Hospital Call List for Transfer 1215: [facility], spoke with Eugene, currently boarding in the ED, patient on wait list 1224: [facility], spoke with Carmen, 48 plus hour wait list, patient not on wait list, advised to keep calling other hospitals 1240: [facility], spoke with Bridget, stated she will have to call back, patient not on wait list currently 1247: [facility], spoke to Elyse, patient on wait list 1251: [facility], spoke to Weir Fisher, unable to add patient to wait list at this time
[2024-10-21 13:04] VITALS: BP 153/74; PULSE 50; O2SAT 96
[2024-10-21 13:05] VITALS: BP 153/74; PULSE 50; O2SAT 96
--- NOTE | 2024-10-21 13:22 | PC.NURSE ---
Pt requested a copy of MRI disc, MRI called and spoke with Adalid who is making a copy and will bring it down to the department once finished.
[2024-10-21 14:33] VITALS: PULSE 55; O2SAT 97
[2024-10-21 14:34] VITALS: BP 173/81; PULSE 55; O2SAT 96
== END 2024-10-21 14:32 | disposition home or self-care (01) ==
PROVIDERS: Emergency Provider Emergency Medicine; PCP Family Medicine
DX: G83.4 Cauda equina syndrome (principal)
CPT/HCPCS: 72148; 99281; 99284

== ENCOUNTER → 2025-01-08 10:43 | Outpatient (CLI) | payer MEDICARE, OTHER, SELFPAY ==
--- NOTE | 2025-01-08 10:45 | DI.MRI.S_ITS ---
PROCEDURE: MR LUMBAR SPINE WO/W CON INDICATIONS: s/p lumbar microdiscetomy TECHNIQUE: Noncontrast sagittal T1 spin echo and T2 fast echo, sagittal STIR, and T2 fast spin echo through the lumbar spine. In cases with scoliosis, additional coronal T2 fast spin echo may be performed. COMPARISON: CR, XR LUMBAR SPINE MIN 4V, 05/10/2022, 16:48. [facility], MR, MR LUMBAR SPINE WO CON, 10/21/2024, 11:00. FINDINGS: Image quality: Excellent. Alignment and Curvature: There is normal bony alignment. Bone Marrow: Marrow is of normal overall signal. No acute vertebral body compression fractures. Spinal Cord: Conus medullaris terminates at the L1 level. Visualized cord demonstrates normal signal and size. Paraspinous Soft Tissues: No paravertebral masses. Postoperative fluid collection extending from the laminectomy site through the paraspinous soft tissues measuring 4 point 9 x 1.3 cm. Discs: Multilevel minimal to mild disc desiccation. T12-L1: Mild disc bulge with mild spinal stenosis. No foraminal narrowing. No interval change. L1-L2: Mild disc bulge with mild spinal stenosis. Mild bilateral foraminal narrowing. No interval change. L2-L3: Mild disc bulge with elvm-kg-leqtzkpy spinal stenosis. Kysg-xz-sjgzmuon bilateral foraminal narrowing with mild facet hypertrophy. No interval change. L3-L4: Mild disc bulge with moderate spinal stenosis. Jpgz-cf-ciswlgjg bilateral foraminal narrowing with facet and ligamentum flavum hypertrophy. No interval change. L4-L5: Interval postsurgical changes are present. Right hemilaminectomy. Previous extrusion is no longer visualized. No spinal stenosis. Moderate bilateral foraminal narrowing. L5-S1: Mild disc bulge without spinal stenosis. No foraminal narrowing. No interval change. IMPRESSION: Postsurgical changes L4-5 with resolution of previous spinal stenosis and resection of previous extrusion. Posterior postoperative fluid collection. Dictated by: Stefany Calvo M.D. on 01/10/2025 at 11:57 Approved by: Stefany Calvo M.D. on 01/10/2025 at 12:02
== END ==
PROVIDERS: PCP Family Medicine; Referring Provider Neurological Surgery; Visit Provider Neurological Surgery
DX: M51.369 Other intervertebral disc degeneration, lumbar region without mention of lumbar back pain or lower extremity pain (principal); M51.379 Other intervertebral disc degeneration, lumbosacral region without mention of lumbar back pain or lower extremity pain; M48.061 Spinal stenosis, lumbar region without neurogenic claudication; M47.816 Spondylosis without myelopathy or radiculopathy, lumbar region; R20.2 Paresthesia of skin; R20.0 Anesthesia of skin; Z98.890 Other specified postprocedural states
CPT/HCPCS: 72158; A9579

== ENCOUNTER 2025-08-03 07:54 | Day surgery (SDC) | payer MEDICARE, OTHER, SELFPAY ==
--- NOTE | 2025-08-03 | PATH_ITS ---
[facility] Accession Number: [id number] No. of containers..02 Tissue . 01 Material submitted: . PART A: colon - CECUM POLYP PART B: colon - COLON, DESIGNATED 25 POLYP . 01 Diagnosis: Part A: CECUM POLYP: Tubular adenoma. . Part B: COLON, DESIGNATED 25 POLYP: Tubular adenoma. [facility] 08/16/2025 1410 Local . 01 Electronically signed: . Royce Lazaro MD, Pathologist NPI- [id number] . 01 Gross description: . A. Received in formalin with two identifiers and cecum polyp is a single agrawal soft tissue fragment measuring 0.6 cm in greatest dimension, entirely submitted in A1. . B. Received in formalin with two identifiers and colon 25 polyp is a single agrawal soft tissue fragment measuring 0.3 cm in greatest dimension, entirely submitted in B1. (AER:[id number]) /MRV 08/16/2025 1410 Local . 01 Pathologist provided ICD-10: D12.0, D12.6 . 01 CPT . 322310, [id number] Specimen Comment: A courtesy copy of this report has been sent to [phone] Performed at: [address] [address], [place], [place] [id number] MD Royce Lazaro MD Phone: [phone]
[2025-08-03 08:28] VITALS: BP 151/82; PULSE 73; RESP 18; TEMP 36.2; O2SAT 96
--- NOTE | 2025-08-03 08:37 | PM.HP.IH.1 ---
History of Present Illness History of Present Illness Date Patient Seen: 08/03/25 Chief complaint: Colonoscopy Narrative: Follow-up screening colonoscopy with history of adenomatous colon polyps. [facility] Medical History History of torn meniscus of right knee History of torn meniscus of left knee Sick sinus syndrome due to SA node dysfunction Atrial flutter Hyperlipidemia Obstructive sleep apnea Morbid obesity with body mass index (BMI) of 40.0 to 49.9 Essential hypertension Torn ACL (anterior cruciate ligament) Atypical chest pain Accidental needlestick injury with exposure to body fluid Pneumonia Surgical History History of cardiac radiofrequency ablation History of right inguinal hernia repair S/P left knee arthroscopy Family History (Updated 12/19/21 @ 16:22 by Michael Correa MD) Sister Dementia Mother Hypertension Hyperlipidemia CAD (coronary artery disease) Brother CAD (coronary artery disease) Cancer Father Atrial fibrillation Staghorn kidney stones Social History household members: spouse alcohol intake: current Meds Home Medications and Allergies Home Medications ?Medication ?Instructions ?Recorded ?Confirmed ?Type losartan 100 mg tablet 100 mg PO QDAY ##0 01/14/17 08/03/25 History [TYLENOL ] 1,000 mg PO Q6-8H PRN Arthritis 07/07/18 06/26/22 History pain ##0 fenofibrate nanocrystallized 145 145 mg PO DAILY 07/07/18 11/13/23 History mg tablet doxazosin 8 mg tablet 8 mg PO DAILY 07/21/21 11/13/23 History chlorthalidone 25 mg tablet 50 mg PO DAILY #0 tabs 12/19/21 08/03/25 History Respironics Dreamstation 2 CPAP #1 ea 06/26/22 History ibuprofen 800 mg tablet 800 mg PO DAILY 06/26/22 08/03/25 History gabapentin 600 mg tablet 600 mg PO BID 11/13/23 11/13/23 History primidone 125 mg tablet 125 mg PO BEDTIME 11/13/23 11/13/23 History terbinafine HCl 250 mg tablet 250 mg PO DAILY 11/13/23 11/13/23 History Allergies Allergy/AdvReac Type Severity Reaction Status Date / Time chlorhexidine (CHLORHEXIDINE) Allergy Unknown Verified 08/03/25 08:25 lisinopril (LISINOPRIL) Allergy Unknown Cough Verified 08/03/25 08:25 amoxicillin (From AUGMENTIN) AdvReac Severe diarrhea Verified 08/03/25 08:25 Fdpysrc-IQP-NvU Reductase AdvReac Severe Severe Verified 08/03/25 08:25 Inhibitor ([id number] muscle pain REDUCTASE INHIBITOR) ezetimibe (From Zetia) AdvReac Intermediate severe Verified 08/03/25 08:25 muscle pain adhesive tape AdvReac Unknown Verified 08/03/25 08:25 azithromycin (AZITHROMYCIN) AdvReac Unknown vomiting Verified 08/03/25 08:25 clavulanic acid (From AdvReac Unknown diarrhea Verified 08/03/25 08:25 AUGMENTIN) Exam Narrative Exam Narrative: Oropharynx free of lesions Chest clear to auscultation percussion Cardiac exam reveals no S3 or murmur Assessment & Plan Assessment & Plan narrative: History of adenomatous colon polyps need for follow-up colonoscopy. Risks, benefits, alternatives have been explained. Time-Based Coding :: [TOTAL MINUTES] spent with patient and on the chart (including review of chart, obtaining history, exam, reviewing outside data, placing orders, documenting exam and treatment plan, and counseling patient) on [DATE]. PROFEE Training Program Assistant Document charge(s): No
--- NOTE | 2025-08-03 08:38 | PM.OP.COLON ---
Operative Date/Time/Diagnoses Date of procedure: 08/03/25 Time of procedure: 09:43 Pre-op diagnosis: See indication and findings Post-op diagnosis: same Procedure & Clinicians Study performed: Colonoscopy Same procedure(s) as scheduled: Yes Surgeon: Doris Cortes Anesthesia Type: Other Procedure Notes Procedure in detail: After informed consent was obtained the patient was placed in left lateral decubitus position. The video colonoscope was introduced the rectum slowly advanced cecum. On slow withdrawal mucosa was carefully examined. The scope was removed. The patient tolerated procedure well. Blood loss none Complications none Sedation mac Findings 1. 8-10 mm sessile polyp in the cecum cold snared and removed completely 2. 5 mm sessile polyp at 25 cm. Cold snared and removed completely 3. Otherwise negative colonoscopy to cecum Will be in touch regarding the pathology. At the very least he will need follow-up colonoscopy in 5 years.
[2025-08-03] MEDS: LACTATED RINGERS 1,000 ML 42 ML IV (08:49)
[2025-08-03 09:51] VITALS: BP 116/56; PULSE 66; RESP 16; TEMP 36.6; O2SAT 96
[2025-08-03 10:01] VITALS: BP 118/56; PULSE 69; RESP 18; TEMP 36.6; O2SAT 97
== END 2025-08-03 10:10 | disposition home or self-care (01) ==
PROVIDERS: PCP Family Medicine; Referring Provider Family Medicine; Visit Provider Internal Medicine Gastroenterology
PROC: 0DJD8ZZ Inspection of Lower Intestinal Tract, Via Natural or Artificial Opening Endoscopic (ICD-10-PCS; CPT 45378; principal; 2025-08-03 09:15)
DX: D12.6 Benign neoplasm of colon, unspecified (principal)
CPT/HCPCS: J2704; J7120